=== PATIENT | male | born 1955 | race African-American/Black ===

== ENCOUNTER 2017-01-10 20:53 | Emergency (ER) | payer MEDICARE, MEDICAID ==
[~2017-01-10] VITALS: Ht 175.3 cm; Wt 60.9 kg
[~2017-01-10 20:53] MED LIST: IPRA4AER INH
[2017-01-10 20:54] VITALS: Ht 175.3 cm; Wt 60.9 kg
--- NOTE | 2017-01-10 20:54 | NUR ---
DR DR BARRERA AT BEDSIDE.
--- OUTSIDE RECORDS SUMMARY | 2017-01-10 20:57 | XMS REPORT | Continuity of Care Document ---
Author Author [facility] Organization [facility] Address Unknown Phone Unavailable Allergies Active Description Code Type Severity Reaction Onset Reported/Identified Relationship to Patient Clinical Status Yes NSAIDS (Non-Steroidal Anti-Inf Drug Allergy uNspecfied 12/14/2012 Yes NSAIDS (Non-Steroidal Anti-Inf Drug Allergy N/A uNspecfied 12/14/2012 Yes No Known Allergies No Known Allergies Drug Allergy Unknown N/A 08/18/2015 Medications Problems Date Dx Coded Attending Type Code Diagnosis Diagnosed By 12/14/2012 SIGIFREDO TORRES DO Final 300.00 ANXIETY STATE NOS 12/14/2012 SIGIFREDO TORRES DO Final 305.1 TOBACCO USE DISORDER 12/14/2012 SIGIFREDO TORRES DO Final 311 DEPRESSIVE DISORDER NEC 12/14/2012 SIGIFREDO TORRES DO Final 338.29 CHRONIC PAIN NEC 12/14/2012 SIGIFREDO TORRES DO Final 434.91 CEREB ART OCCL W INFARCT 12/14/2012 SIGIFREDO TORRES DO Final 493.90 ASTHMA NOS 12/14/2012 SIGIFREDO TORRES DO Final 715.90 OSTEOARTHOSIS NOS-NOS 12/14/2012 SIGIFREDO TORRES DO Final 724.5 BACKACHE NOS 12/14/2012 SIGIFREDO TORRES DO Final 784.3 APHASIA 09/15/2013 Wiliam Julien MD Final 305.1 TOBACCO USE DISORDER 09/15/2013 Wiliam Julien MD Final 342.90 UNSPEC HEMIPLEG-SIDE NOS 09/15/2013 Wiliam Julien MD Final 434.01 CEREB THROMB W INFARCT 09/15/2013 Wiliam Julien MD Final 493.90 ASTHMA NOS 09/15/2013 Wiliam Julien MD Admitting 780.79 MALAISE FATIGUE NEC 09/15/2013 Wiliam Julien MD Final V15.81 HX NONCOMPLIANCE MED TX Procedures Results Test Result Range URINALYSIS, ROUTINE - 08/18/15 18:07 UA LEUKOCYTE ESTERASE DIPSTICK NEGATIVE NEGATIVE UA NITRITE DIPSTICK NEGATIVE NEGATIVE UA PROTEIN DIPSTICK NEGATIVE NEGATIVE UA GLUCOSE DIPSTICK NEGATIVE NEGATIVE UA KETONE DIPSTICK NEGATIVE NEGATIVE UA UROBILINOGEN DIPSTICK NORMAL NORMAL UA BILIRUBIN DIPSTICK NEGATIVE NEGATIVE UA BLOOD DIPSTICK 3+ NEGATIVE UA SPECIFIC GRAVITY <=1.005 1.015-1.025 UR PH 6.0 5.0-7.0 UA MICROSCOPIC - 08/18/15 18:07 UA EPITHELIAL CELLS 2+ epi/hpf 0 - 1+ UA RBC 0-3 rbc/hpf 0 - 3 UA VOLUME FOR EXAM 12.0 mL (12mL STD) UA WBC 0 wbc/hpf 0 - 5 Encounters ACCT No. Visit Date/Time Discharge Status Pt. Type Provider Facility Loc./Unit Complaint [id number] 09/14/2013 11:23:00 2013 14:48:00 DIS Inpatient Anaya IRVING, Wilaim Castro [facility] F7SW [id number] 12/14/2012 18:35:00 2012 20:45:00 DIS Inpatient SIGIFREDO TORRES DO [facility] F3SD
--- OUTSIDE RECORDS SUMMARY | 2017-01-10 20:57 | XMS REPORT ---
Author Author [place], [facility] - Organization Unknown Address Unknown Phone Unavailable Allergies, Adverse Reactions, Alerts * NSAIDS (Non-Steroidal Anti-Inflammatory Drug) causes uNspecfied. * No Latex Allergy. * No IV Contrast Allergy. Problems * Intracranial Adaptive Capacity Low Level* Status:Active. * Pain* Status:Active. Procedures No Procedures Documented. Medication It is the responsibility of the patient or patient sales representative business courses to confirm the list of medications with either the patient's personal care provider or the patient's follow-up care provider to ensure the patient has an appropriate list of medications to take at home. Discharge medications* albuterol sulfate 90 mcg HFA Aerosol Inhaler, Ordered By : Maribell Sanchez Directions: 2 puff by inhalation every four hours PRN shortness of breath * HYDROcodone-acetaminophen (Lortab) 10 mg-500 mg Tablet, Ordered By: Maribell Sanchez Directions: 1 tablet oral three times a day PRN pain * aspirin (Ecotrin) 325 mg Tablet, Delayed Release (E.C.), Ordered By: Maribell Sanchez Directions: 1 tablet oral Daily at 8 AM _ * atorvastatin (Lipitor) 80 mg Tablet, Ordered By: Maribell Sanchez Directions: 1 tablet oral daily at bedtime Stopped medications* None Results LAB--BEDSIDE TESTING from 12/15/2012 12:04 AMGlucose NPT 147 mg/dL H (70-100 mg/ dL) LAB--BEDSIDE TESTING from 12/15/2012 8:06 AMGlucose NPT 94 mg/dL (70-100 mg/dL) LAB--BEDSIDE TESTING from 12/15/2012 1:07 PMGlucose NPT 124 mg/dL H (70-100 mg/dL ) LAB--BEDSIDE TESTING from 12/15/2012 8:48 PMGlucose NPT 134 mg/dL H (70-100 mg/dL ) LAB--BEDSIDE TESTING from 12/16/2012 6:22 AMGlucose NPT 106 mg/dL H (70-100 mg/ dL) LAB--BEDSIDE TESTING from 12/16/2012 12:09 PMGlucose NPT 101 mg/dL H (70-100 mg/ dL) LAB--BEDSIDE TESTING from 12/16/2012 3:23 PMGlucose NPT 112 mg/dL H (70-100 mg/ dL) LAB--CHEMISTRY from 12/15/2012 4:59 AMAnion Gap 9 (3-20 ) Albumin 3.6 g/dL (3.5-4.8 g/dL) BUN 18 mg/dL (4-20 mg/dL) Calcium 8.8 mg/dL (8.6-10.0 mg/dL) Chloride 107 mEq/L (99-109 mEq/L) CO2 23 mEq/L (22-32 mEq/L) Creatinine 0.99 mg/dL (0.64-1.27 mg/dL) eGFR >60 (>60- ) Glucose 81 mg/dL (70-100 mg/dL) Potassium 4.1 mEq/L (3.6-5.1 mEq/L) Magnesium 2.0 mg/dL (1.8-2.5 mg/dL) Sodium 139 mEq/L (136-144 mEq/L) Phosphorus 4.8 mg/dL H (2.4-4.7 mg/dL) Estimated Average Glucose 119.8 mg/dL Hemoglobin A1C 5.8 % H (4.1-5.6 %) Cholesterol 160 mg/dL (0-200 mg/dL) Cardiac Risk 4.6 (0.0-5.7 ) HDL Cholesterol 35 mg/dL A (>40- mg/dL) LDL Cholesterol 117 mg/dL H (0-100 mg/dL) Triglycerides 39 mg/dL (0-150 mg/dL) VLDL Cholesterol 8 mg/dL (0-30 mg/dL) C-Reactive Protein (CRP) <0.5 mg/dL (0.0-0.9 mg/dL) LAB--CHEMISTRY from 12/16/2012 3:56 AMAnion Gap 5 (3-20 ) Albumin 3.5 g/dL (3.5-4.8 g/dL) BUN 16 mg/dL (4-20 mg/dL) Calcium 8.9 mg/dL (8.6-10.0 mg/dL) Chloride 109 mEq/L (99-109 mEq/L) CO2 24 mEq/L (22-32 mEq/L) Creatinine 0.97 mg/dL (0.64-1.27 mg/dL) eGFR >60 (>60- ) Glucose 94 mg/dL (70-100 mg/dL) Potassium 4.0 mEq/L (3.6-5.1 mEq/L) Magnesium 1.9 mg/dL (1.8-2.5 mg/dL) Sodium 138 mEq/L (136-144 mEq/L) Phosphorus 4.3 mg/dL (2.4-4.7 mg/dL) LAB--COAG STUDIES from 12/15/2012 4:59 AMINR 1.1 (0.9-1.2 ) LAB--HEMATOLOGY from 12/15/2012 4:59 AMHCT 42.9 % (42.0-52.0 %) HGB 14.6 g/dl (14.0-18.0 g/dl) MCH 30.1 pg (27.0-32.0 pg) MCHC 34.0 g/dL (32.0-36.0 g/dL) MCV 88.5 fL (82.0-99.0 fL) MPV 10.1 fL (9.4-12.3 fL) Platelet Count 288 K/uL (150-400 K/uL) RBC 4.85 M/uL (4.60-6.20 M/uL) RDW 14.6 % H (11.5-14.5 %) WBC 9.0 K/uL (4.8-10.8 K/uL) LAB--HEMATOLOGY from 12/16/2012 3:56 AMHCT 42.0 % (42.0-52.0 %) HGB 14.1 g/dl (14.0-18.0 g/dl) MCH 29.5 pg (27.0-32.0 pg) MCHC 33.6 g/dL (32.0-36.0 g/dL) MCV 87.9 fL (82.0-99.0 fL) MPV 10.3 fL (9.4-12.3 fL) Platelet Count 297 K/uL (150-400 K/uL) RBC 4.78 M/uL (4.60-6.20 M/uL) RDW 14.4 % (11.5-14.5 %) WBC 8.4 K/uL (4.8-10.8 K/uL)
--- NOTE | 2017-01-10 21:04 | ERPDOC ---
Departure Disposition Decision Date: January 10, 2017 Disposition Decision Time: 21:38 Disposition: 01 DISCHARGED HOME, SELF-CARE Impression Impression Impression: Primary Impression: Acute urinary retention Severity: Severe Condition: Improved Seen By: Physician only Referrals: TANJA SOUTH MD, ASHLEY N DO Patient Instructions: Partida Catheter Placement and Care (ED), Urinary Retention in Men (ED) Problems/Meds/Labs Reviewed?: Yes Medications reviewed and manag: Yes Additional Instructions: Call Dr. Barry's office first thing Friday to schedule an appointment for Friday or Friday, if she is not available, call Dr. South's office for appointment for recheck of catheter Follow up care ordered?: Yes Mental Status: Alert Scripts Tamsulosin HCl (Flomax) 0.4 Mg Capsule 0.4 MG PO DAILY, #30 CAP Take 1 capsule, by mouth, one time a day at BEDTIME. Prov: LICHA BARRERA MD 01/10/17 HPI - Male General Stated Complaint: DYSURIA Time Seen by Provider: 20:56 Source: patient Exam Limitations: no limitations HPI - Male Initial Comments Recurrent urinary retention. Patient has history of this with benign prostatic hypertrophy. Patient apparently takes no medications, has never followed up with urologist as directed the last time he was seen for this, and does not go to see any doctors. Patient was seen for the same thing twice in 2014, was referred to Dr. South, but it's uncertain whether the patient followed up with him or not. Patient also has hypertension, and coronary disease, but does not take any medications, and sees no physician. Patient recently saw Dr. Loya, and was referred to Dr. Chapa, but has not followed up. Occurred At: home Onset: Gradual Duration: 6-12 hrs Severity/Quality: fullness Location: suprapubic Hx of Similar Symptoms: Yes Allergies: Coded Allergies: tomato (Verified Allergy, Mild, 01/10/17) NSAIDS (Non-Steroidal Anti-Inflamma (Verified Allergy, Unknown, 01/10/17) PT HAS DENIED THIS ALLERGY. Past History Patient Medical History Problem List Updates: Recurrent urinary retention Past Medical History Cardiac: CAD Respiratory: asthma Male: BPH, other Neurological: CVA Musculoskeletal: back pain, osteoarthritis Psychological: depression Surgical History General: gallbladder, tonsils Joint: knee Vaccines Hx Influenza Vaccination: No Hx Pneumococcal Vaccination: No Review of Systems Constitutional Constitutional: DENIES: appetite decrease, appetite increase, chills, dizziness , fever, weakness ENMT Ears: DENIES: pain Hearing: DENIES: hearing loss, tinnitus Balance: DENIES: vertigo Mouth/Throat: DENIES: change in swallowing, change in voice, hoarsness, painful swallowing, sore throat Cardiovascular Cardiac: DENIES: chest pain, dyspnea on exertion Rhythm/Rate: DENIES: irregular beat, palpitations, tachycardia Vascular: DENIES: pedal edema Pulmonary Respiratory: DENIES: cough, dyspnea, pleuritic chest pain GI Upper Abdomen: DENIES: dysphagia, heartburn/indigestion, nausea, pain, vomiting Lower Abdomen: DENIES: blood in stool, constipation, diarrhea, pain General: DENIES: burning, dysuria, frequency, pain, urgency Male: retention Musculoskeletal General: DENIES: cramps, joint pain, joint swelling, pain, weakness Integumentary Skin: DENIES: rash, sores Neurological General: DENIES: headache, numbness, tingling, vertigo, weakness Psychiatric Psychiatric: DENIES: anxiety, depression, nervousness Physical Exam General General Nourishment: well nourished, well developed, appears stated age, thin General Body Habitus: disheveled Vitals and Pain First Documented Vital Signs Date Time Temp Pulse Resp B/P Pulse Ox O2 Delivery O2 Flow Rate FiO2 01/10/17 20:54 98.1 120 24 202/110 95 Room Air Weight: Kilograms: Height (feet): 5 Height (inches): 10 Triage Pain Scale: RN VS reviewed by Provider: Yes Comments Patient has moderately poor hygiene, has unclipped fingernails that are excessive in length, and does not appear to have bathed in several days. Normal Exams: Head: Normocephalic w/o trauma Eyes: Pupils are PERRLA w/ EOMI, No scleral icterus, irritation, or foreign bodies noted ENMT: No facial trauma, nasal exudates, pharyngeal erythema, or exudates are noted Neck: Full range of motion, without adenopathy, JVD, bruits or thyromegaly Chest/Resp: Clear all herzog, with good airflow, and symmetry bilaterally CV: Regular rate and rhythm, without murmur or gallop, Pulses 2+ all extremities, capillary refill, <2 seconds all ext., no pedal edema noted Lymphatic: No lymphadenopathy, or lymphedema noted Musculoskeletal: No tenderness, or deformity noted, good range of motion, all extremities Integumentary: No rashes, hives, or bruising noted, hair and nails, without abnormality Neurologic: Patient is alert, and oriented, cranial nerves, motor/sensory/ cerebellar, exams w/o gross deficits, to observation Psychiatric: Patient exhibits, appropriate attention, emotion and affect Abdomen (brief) Abdominal Brief: FOUND: bowel normo active x4, soft, tender (suprapubic tenderness and fullness. ), NOT FOUND: distended, hepatosplenomegaly, pulsatile mass Progress Results/Orders Orders Procedure Category Date Status Time Partida (Ed) EDM 01/10/17 Transmitted 20:56 Catheter Needs LIDIA 01/10/17 In Process Assessment 20:56 Bladder Scanner (Ed) EDM 01/10/17 Transmitted 20:56 UA, LAB 01/10/17 Complete Dip&Micro(Complete) & 21:10 Lab Results Laboratory Tests Test 01/10/17 21:10 Urine Collection Type Straight cath Urine Color Yellow Urine Turbidity Sl cloudy Urine pH 5.5 Urine Specific [place] <=1.005 Urine Protein Negative Urine Glucose (UA) Negative Urine Ketones Negative Urine Blood 3+ Urine Nitrite Negative Urine Bilirubin Negative Urine Urobilinogen 0.2EU/DL Urine Leukocyte Esterase Negative Urine RBC 1-3/HPF Urine WBC 0-1/HPF Urine Bacteria Trace Urine Culture Indicated Cult not indicated Progress Progress Partida catheter placed, with 550 cc in the bladder - >530cc out initially - 2 complete relief UA - normal After urinary retention was relieved, pulse and blood pressure normalized. Recent started on Flomax 0.4 mg daily, and is instructed to call Dr. Barry's office for sting Friday morning for recheck appointment. LICHA BARRERA MD January 10, 2017 21:04
--- OUTSIDE RECORDS SUMMARY | 2017-01-10 21:09 | XMS REPORT | Continuity of Care Document ---
Author Author [facility] Organization [facility] Address Unknown Phone Unavailable Allergies Active Description [...] Status Pt. Type Provider Facility Loc./Unit Complaint [id number] 09/14/2013 11:23:00 2013 14:48:00 DIS Inpatient Anaya IRVING, Wiliam Castro [facility] F7SW [id number] 12/14/2012 18:35:00 2012 20:45:00 DIS Inpatient SIGIFREDO TORRES DO [facility] F3IN
--- OUTSIDE RECORDS SUMMARY | 2017-01-10 21:09 | XMS REPORT ---
Author Author [place], [facility] - Organization Unknown Address Unknown Phone Unavailable Allergies, Adverse Reactions, Alerts * NSAIDS (Non-Steroidal Anti-Inflammatory Drug) causes uNspecfied. * No Latex Allergy. * No IV Contrast Allergy. Problems * Intracranial Adaptive Capacity Low Level* Status:Active. * Pain* Status:Active. Procedures No Procedures Documented. Medication It is the responsibility of the patient or patient software support representative to confirm the list of medications with [...]
[2017-01-10 21:19] LABS: BLOOD, URINE 3+ (NEGATIVE); COLOR,URINE YELLOW (YELLOW); LEUKOCYTE ESTERASE ,URINE NEGATIVE (NEGATIVE); NITRITE,URINE NEGATIVE (NEGATIVE); UROBILINOGEN,URINE 0.2 EU/DL (NORMAL)
--- NOTE | 2017-01-10 21:25 | NUR ---
OUTPUT PT HAS HAD APPROX 530 ML OUTPUT FROM BLADDER.
[2017-01-10 21:27] LABS: WBC,URINE 0-1 /HPF (0-5)
[2017-01-10] MEDS ORDERED: NO KNOWN MEDICATIONS (21:27)
[2017-01-10 21:28] LABS: BACTERIA,URINE TRACE (NEGATIVE)
[2017-01-10] MEDS ORDERED: TAMS-1 PO (21:40)
[2017-01-10] MEDS ORDERED: TAMSULOSIN 0.4 MG CAPSULE PO ONE (21:45)
[2017-01-10 21:59] VITALS: BP 122/70; PULSE 88; RESP 14; TEMP 98.1; O2SAT 92
--- NOTE | 2017-01-10 21:59 | NUR ---
DISMISS PT TAKEN BY WC TO PRIVATE VEHICLE. PT ACCOMPANIED BY SISTER.
== END 2017-01-10 21:59 | disposition home or self-care (01) ==
LOC: ED 20:53
DX: N40.1 Benign prostatic hyperplasia with lower urinary tract symptoms (principal); R33.8 Other retention of urine
CPT/HCPCS: 51702; 81001; 99283; A9270

== ENCOUNTER 2017-01-14 10:20 | Emergency (ER) | payer MEDICARE, MEDICAID ==
[~2017-01-14] VITALS: Ht 172.7 cm; Wt 60.7 kg
[~2017-01-14 10:20] MED LIST changes: -IPRA4AER INH; +NO KNOWN MEDICATIONS; +TAMS-1 PO
[2017-01-14 10:25] VITALS: Ht 172.7 cm; Wt 60.7 kg
--- OUTSIDE RECORDS SUMMARY | 2017-01-14 10:25 | XMS REPORT ---
Author Author [place], [facility] - Organization Unknown Address Unknown Phone Unavailable Allergies, Adverse Reactions, Alerts * NSAIDS (Non-Steroidal Anti-Inflammatory Drug) causes uNspecfied. * No Latex Allergy. * No IV Contrast Allergy. Problems * Intracranial Adaptive Capacity Low Level* Status:Active. * Pain* Status:Active. Procedures No Procedures Documented. Medication It is the responsibility of the patient or patient branch customer service representative to confirm the list of medications [...]
--- OUTSIDE RECORDS SUMMARY | 2017-01-14 10:26 | XMS REPORT | Continuity of Care Document ---
Author Author [facility] Organization [facility] Address Unknown Phone Unavailable Allergies Active [...] Status Pt. Type Provider Facility Loc./Unit Complaint [id number] 09/14/2013 11:23:00 2013 14:48:00 DIS Inpatient Anaya IRVING, Wiliam Castro [facility] F7SW [id number] 12/14/2012 18:35:00 2012 20:45:00 DIS Inpatient SIGIFREDO TORRES DO [facility] F3OK
--- OUTSIDE RECORDS SUMMARY | 2017-01-14 10:26 | XMS REPORT | Continuity of Care Document ---
Author Author [facility] Organization [facility] Address Unknown Phone Unavailable Support Name Relationship Address Phone LICHA BARRERA MD Caregiver [address] [place] [address] Unavailable LORNEYESSY BECKIE Next Of Kin [address] [place] [address] Insurance Providers Guarantor Jose Noland Iii Address [address] [place] [address] Email DENIED 01-10-17 Payer [facility] [employer] Plan Policy Number [id number] Subscriber's Name Jose Noland Iii Relationship 18 Self Effective Date 17 Expiration Date 17 Payer Medicare Policy Number [id number] Subscriber's Name Jose Noland Iii Relationship 18 Self Effective Date 09 Advance Directives Directive Response Recorded Date/Time Advanced Directives Type None 01/10/17 8:54pm Chief Complaint and Reason for Visit Chief Complaint Male Urogenital Problems Reason for Visit [id number] Problems Past Problems Medical Problem Onset Date Acute urinary retention Unknown Medications Current Home Medications Medication Dose Units Route Directions Days Qty Instructions Start Date No Known Medications 01/10/17 Tamsulosin Hcl (Flomax) 0.4 Mg Capsule 0.4 Mg Oral Daily 30 Capsule Take 1 capsule, by mouth, one time a day at BEDTIME. 01/10/17 Past Home Medications Medication Directions Ordered Status Albuterol Sulfate (Albuterol Sulfate Hfa) 8.5 Gm Hfa.aer.ad, As Needed Discontinued Albuterol/Ipratropium (Combivent Respimat Inhal [place]) 120 Puff/4 Gm Inha, 1 Puff Inhalation Daily 05/10/15 Discontinued Chlorpheniramine Maleate (Chlor-Trimeton Allergy) 12 Mg Tablet.sa, 12 Mg Oral Every Two To Five Minutes 11/22/11 Discontinued Elavil , 200 Mg Oral As Needed 11/22/11 Discontinued Sulfamethoxazole/Trimethoprim (Bactrim Ds Tablet) 1 Tab Tablet, 1 Tab Oral Twice A Day 12/17/11 Discontinued Tamsulosin Hcl 0.4 Mg Cap.er.24h, 0.4 Mg Oral Bedtime 05/10/15 Discontinued Social History Social History Problem Response Recorded Date/Time Onset Date Status Hx Substance Use No 01/10/2017 9:29pm Not Applicable Not Applicable Hx Alcohol Use No 01/10/2017 9:29pm Not Applicable Not Applicable Tobacco Usage none 05/12/2015 4:11pm Not Applicable Not Applicable Query Response Start Date Stop Date Smoking Status Current every day smoker Hospital Discharge Instructions No hospital discharge instructions. Plan of Care Discharge Date 01/10/17 9:59pm Disposition 01 DISCHARGED HOME, SELF-CARE Condition at Discharge Improved Instructions/Education Provided Urinary Retention in Men (ED) Partida Catheter Placement and Care (ED) Prescriptions See Medication Section Referrals JOSE SOUTH MD Address: [address] [place] [address] [place] [address] [phone] AUSTIN WANG DO Address: [address] [place] [id number] Additional Instructions/Education Call Dr. Barry's office first thing Friday to schedule an appointment for Friday or Friday, if she is not available, call Dr. South's office for appointment for recheck of catheter Care Plan and Goals Physician Care Plan Problem: Urinary retention Goal: Follow up with primary care provider Instructions: Take medications and follow care plan as discussed/written Call Dr. Barry's office first thing Friday to schedule an appointment for Friday or Friday, if she is not available, call Dr. South's office for appointment for recheck of catheter Functional Status No functional status results. Allergies, Adverse Reactions, Alerts Allergen Type Severity Reaction Status Last Updated NSAIDS (Non-Steroidal Anti-Inflamma Allergy Unknown Active 01/10/17 Tomato Allergy Mild Active 01/10/17 Immunizations Query Response on File Recorded Date/Time Hx Influenza Vaccination No 05/10/15 1:04pm Hx Pneumococcal Vaccination No 05/10/15 1:04pm Hx Influenza Vaccination No 05/10/15 1:04pm Influenza Vaccine Hx NO 01/10/17 9:29pm Vital Signs Acute Vital Signs Vital Response Date/Time Temperature (Fahrenheit) 98.1 deg F (96.8 - 99.1) 01/10/2017 9:59pm Temperature (Calculated Celsius) 36.18027 degrees C (36.0 - 37.3) 01/10/2017 9:59pm Pulse Rate (adult) 88 bpm (60 - 100) 01/10/2017 9:59pm Respiratory Rate 14 breaths/min (10 - 20) 01/10/2017 9:59pm O2 Sat by Pulse Oximetry 92 % (90 - 100) 01/10/2017 9:59pm Blood Pressure 122/70 mm Hg 01/10/2017 9:59pm Height (Feet) 5 feet 01/10/2017 8:54pm Height (Inches) 9.00 inches 01/10/2017 8:54pm Weight (Kilograms) 60.900 kg 01/10/2017 8:54pm Body Mass Index (BMI) 19.0 01/10/2017 8:54pm Results Laboratory Results Test Name Result Units Flags Reference Collection Date/Time Result Date/ Time Comments Urine Collection Type STRAIGHT CATH 01/10/2017 9:10pm 01/10/2017 9: 19pm Urine Color YELLOW YELLOW 01/10/2017 9:10pm 01/10/2017 9:19pm Urine Turbidity SL CLOUDY CLEAR 01/10/2017 9:10pm 01/10/2017 9:19pm Urine Specific [place] <=1.005 L 1.015-1.025 01/10/2017 9:10pm 2016 9:19pm Urine pH 5.5 5.0-8.0 01/10/2017 9:10pm 01/10/2017 9:19pm Urine Leukocyte Esterase NEGATIVE NEGATIVE 01/10/2017 9:10pm 2016 9:19pm Urine Nitrite NEGATIVE NEGATIVE 01/10/2017 9:10pm 01/10/2017 9:19pm Urine Protein NEGATIVE NEGATIVE 01/10/2017 9:10pm 01/10/2017 9:19pm Urine Glucose (UA) NEGATIVE NEGATIVE 01/10/2017 9:10pm 01/10/2017 9: 19pm Urine Ketones NEGATIVE NEGATIVE 01/10/2017 9:10pm 01/10/2017 9:19pm Urine Urobilinogen 0.2 EU/DL NORMAL 01/10/2017 9:10pm 01/10/2017 9: 19pm Urine Bilirubin NEGATIVE NEGATIVE 01/10/2017 9:10pm 01/10/2017 9: 19pm Urine Blood 3+ A NEGATIVE 01/10/2017 9:10pm 01/10/2017 9:19pm Urine WBC 0-1 /HPF 0-5 01/10/2017 9:10pm 01/10/2017 9:28pm Urine RBC 1-3 /HPF 0-3 01/10/2017 9:10pm 01/10/2017 9:28pm Urine Bacteria TRACE H NEGATIVE 01/10/2017 9:10pm 01/10/2017 9:28pm Urine Culture Indicated CULT NOT INDICATED 01/10/2017 9:10pm 2016 9:28pm Procedures No known history of procedures. Encounters Encounter Location Arrival/Admit Date Discharge/Depart Date Attending Provider Departed Emergency Room [facility] 01/10/17 8:53pm 01/10/17 9: 59pm LICHA BARRERA MD Recent Diagnosis
--- NOTE | 2017-01-14 11:11 | ERPDOC ---
Departure Disposition Decision Date: January 14, 2017 Disposition Decision Time: 11:20 Disposition: 01 DISCHARGED HOME, SELF-CARE Impression Impression Impression: Primary Impression: Encounter for Partida catheter removal Additional Impression: Urinary retention due to benign prostatic hyperplasia Severity: Moderate Condition: Stable Seen By: Physician only Patient Instructions: Urinary Retention in Men (ED) Problems/Meds/Labs Reviewed?: Yes Medications reviewed and manag: Yes Additional Instructions: Strongly recommend you follow-up with primary medical physician or Dr. South Follow up care ordered?: Yes Mental Status: Alert, Oriented HPI - Male General Chief Complaint: Male Urogenital Problems Stated Complaint: WANTS CATH BAG TAKEN OUT Time Seen by Provider: 11:11 Source: patient Exam Limitations: no limitations HPI - Male Initial Comments Patient is a 61-year-old male presents emergency department for removal of his Partida catheter. Full catheter was placed 4 days ago patient was started on Flomax. Patient did not follow-up with his primary care doctor or his urologist as instructed, states that the Partida is very uncomfortable and now he "knows he can P". Patient here for removal of Partida no other complaint Allergies: Coded Allergies: tomato (Verified Allergy, Mild, 01/14/17) NSAIDS (Non-Steroidal Anti-Inflamma (Verified Allergy, Unknown, 01/14/17) PT HAS DENIED THIS ALLERGY. Past History Past Medical History Cardiac: CAD Respiratory: asthma Male: BPH, other Neurological: CVA Musculoskeletal: back pain, osteoarthritis Psychological: depression Surgical History General: gallbladder, tonsils Joint: knee Vaccines Hx Influenza Vaccination: No Hx Pneumococcal Vaccination: No Review of Systems Constitutional Constitutional: DENIES: appetite decrease, chills, dizziness, fever, weakness ENMT Sinuses: DENIES: congestion, rhinorrhea Mouth/Throat: DENIES: scratchy throat, sore throat Cardiovascular Cardiac: DENIES: chest pain Pulmonary Respiratory: DENIES: cough, sputum GI Upper Abdomen: DENIES: nausea, pain, vomiting Lower Abdomen: DENIES: constipation, diarrhea, pain General: DENIES: burning, frequency Musculoskeletal General: DENIES: cramps, pain, weakness Integumentary Skin: DENIES: color change, itching, rash Endocrine Endocrine: DENIES: heat/cold intolerance Hematologic/Lymphatic Hematologic/Lymphatic: DENIES: anemia Physical Exam General General Nourishment: well nourished, well developed General Body Habitus: well groomed Vitals and Pain First Documented Vital Signs Date Time Temp Pulse Resp B/P Pulse Ox O2 Delivery O2 Flow Rate FiO2 01/14/17 10:25 97.7 77 16 157/96 99 Room Air Weight: Kilograms: 60.700 Height (feet): 5 Height (inches): 8.00 Triage Pain Scale: RN VS reviewed by Provider: Yes Eyes (brief) Eyes Brief: found: EOMI ENMT (brief) ENMT Brief: FOUND: mucosa moist, normal dentition, NOT FOUND: nasal erythema, pharnyx erythema, tonsillar deviation Neck (brief) Neck: NOT FOUND: adenopathy, spasm, tenderness Respiratory (brief) Respiratory: FOUND: clear all herzog, equal bilaterally, NOT FOUND: rales, wheezes Cardiovascular (brief) Cardiac: FOUND: regular rate, regular rhythm Capillary Refill: <2 sec Abdomen (brief) Abdominal Brief: FOUND: bowel normo active x4, soft, NOT FOUND: distended, tender (brief) Male Brief: FOUND: circumcised, NOT FOUND: deformity, mass, tenderness Lymphatic (brief) Lymphatic Brief: NOT FOUND: adenopathy Musculoskeletal (brief) Musculoskeletal Brief: NOT FOUND: spasm, tenderness Psychiatric (brief) Psychiatric Brief: FOUND: alert, oriented Differential Diagnoses Considering: Other (Partida catheter due to BPH) Procedures Procedures Performed Procedures Performed: Other (Partida removal) Procedure Detail Procedure Details Balloon was deflated and Partida was removed without issue, done by Yonatan Progress Progress Progress Instructed patient that I would remove his Partida today, however he definitely needs to follow-up with his primary medical physician or with urology for continued treatment of his BPH, we will not be re-prescribing his medications for BPH in the emergency department. Patient states that he understands and that he would see his primary medical physician. ROBSON ROTH MD January 14, 2017 11:11
--- NOTE | 2017-01-14 11:14 | NUR ---
PHYSICIAN DR. ROTH AT BEDSIDE TO EXAMINE Pt.
[2017-01-14 11:25] VITALS: BP 152/78; PULSE 75; RESP 16; TEMP 98.3; O2SAT 98
--- OUTSIDE RECORDS SUMMARY | 2017-01-14 11:32 | XMS REPORT ---
Author Author [facility], [facility] - Organization Unknown Address Unknown Phone Unavailable Allergies, Adverse Reactions, Alerts * NSAIDS (Non-Steroidal Anti-Inflammatory Drug) causes uNspecfied. * No Latex Allergy. * No IV Contrast Allergy. Problems * Intracranial Adaptive Capacity Low Level* Status:Active. * Pain* Status:Active. Procedures No Procedures Documented. Medication It is the responsibility of the patient or patient field representative to confirm the list of medications [...]
--- OUTSIDE RECORDS SUMMARY | 2017-01-14 11:32 | XMS REPORT | Continuity of Care Document ---
Author Author [facility] Organization [facility] Address Unknown Phone Unavailable Allergies Active Description [...] Status Pt. Type Provider Facility Loc./Unit Complaint [id number] 09/14/2013 11:23:00 2013 14:48:00 DIS Inpatient Anaya IRVING, Wiliam Castro [facility] [id number] 12/14/2012 18:35:00 2012 20:45:00 DIS Inpatient SIGIFREDO TORRES DO [facility] [id number]
== END 2017-01-14 11:25 | disposition home or self-care (01) ==
LOC: ED 10:20
DX: Z46.6 Encounter for fitting and adjustment of urinary device (principal); N40.1 Benign prostatic hyperplasia with lower urinary tract symptoms; R33.8 Other retention of urine